=== PATIENT | male | born 1945 | race Caucasian/White ===

== ENCOUNTER 2016-09-04 17:20 | Emergency (ER) | payer MEDICARE ==
[2015-04-30 10:35] VITALS: BMI 15.7
[~2016-09-04 17:20] MED LIST: ACETAMINOPHEN325 MG PO; ALDACTONE25 MG PO; ARICEPT10 MG PO; BAYER CHEWABLE81 MG PO; COLACE100 MG PO; DEPAKOTE SPRIN125 MG PO; FLOMAX0.4 MG PO; GABAPENTIN100 MG PO; LEXAPRO5 MG PO; LIPITOR10 MG PO; LISINOPRIL10 MG PO; NIFEDIPINE ER60 MG; PEPCID20 MG PO; PERPHENAZINE2 MG PO; PROCARDIA XL PO; SEROQUEL25 MG PO; TRAZODONE HCL50 MG PO; VITAMIN B-121000 MCG PO; VITAMIN D5000 UNIT PO; ZANTAC150 MG PO; ZESTRIL40 MG PO
== END 2016-09-04 19:35 | disposition home or self-care (01) ==
LOC: D.ER 17:20
DX: S00.83XA Contusion of other part of head, initial encounter (principal); Y04.2XXA Assault by strike against or bumped into by another person, initial encounter; Y93.89 Activity, other specified; Y92.89 Other specified places as the place of occurrence of the external cause; M54.2 Cervicalgia; F03.91 Unspecified dementia, unspecified severity, with behavioral disturbance; F10.20 Alcohol dependence, uncomplicated; Z95.0 Presence of cardiac pacemaker; N40.0 Benign prostatic hyperplasia without lower urinary tract symptoms; I25.10 Atherosclerotic heart disease of native coronary artery without angina pectoris; E78.5 Hyperlipidemia, unspecified; I10 Essential (primary) hypertension

== ENCOUNTER 2016-10-13 10:08 | Inpatient (IN) | payer MEDICARE ==
[~2016-10-13] VITALS: Ht 185.4 cm; Wt 62.6 kg
[2016-10-13 11:25] LABS: BASOPHILS 0.1 % (0-2); EOSINOPHILS 0 % (0-7); HEMATOCRIT 42.4 % (42.0-54.0); HEMOGLOBIN 13.9 g/dL (13.5-17.5); IMMATURE GRANULOCYTES 0.4 % (0-5); LYMPHOCYTES 11.5 % (15-50); MCH 33.7 pg (26.0-34.0); MCHC 32.8 g/dL (31.0-37.0); MCV 102.7 fL (80.0-100.0); MEAN PLATELET VOLUME 10.2 fL (7.4-10.4); MONOCYTES 24.3 % (2-11); NEUTROPHILS 63.7 % (40-80); RBC 4.13 10x6/uL (4.20-6.10); RDW 13.5 % (11.5-14.5); WBC 7.1 10x3/uL (4.8-10.8)
[2016-10-13 11:28] LABS: PLATELET COUNT 148 10x3/uL (130-400)
[2016-10-13 11:47] LABS: ALBUMIN 2.7 g/dL (3.4-5.0); ANION GAP 17.1 mmol/L (8-16); BILIRUBIN - TOTAL 1.17 mg/dL (0.2-1.3); CALCIUM 9.4 mg/dL (8.5-10.1); CARBON DIOXIDE 26.1 mmol/L (21.0-32.0); CREATININE - SERUM 1.8 mg/dL (0.6-1.3); POTASSIUM - SERUM 4.2 mmol/L (3.5-5.1)
[2016-10-13 12:24] LABS: APPEARANCE HAZY (CLEAR); BILIRUBIN NEGATIVE (NEGATIVE); COLOR YELLOW (YELLOW); GLUCOSE NEGATIVE (NEGATIVE); KETONE MODERATE mg/dL (NEGATIVE); LEUKOCYTE ESTERASE NEGATIVE (NEGATIVE); NITRITE NEGATIVE (NEGATIVE); PROTEIN 1+ mg/dL (NEGATIVE); SPECIFIC GRAVITY 1.015 (1.005-1.020); UROBILINOGEN NORMAL (NORMAL)
[2016-10-13 12:25] LABS: AMORPHOUS SEDIMENT >1+ /lpf (NONE SEEN); BACTERIA FEW /hpf (NONE SEEN); EPITHELIAL CELLS 0-5 /hpf (0-5); GRANULAR CAST RARE /lpf (NONE SEEN); MUCUS <1+ /lpf (NONE SEEN); WHITE CELLS - URINE OCC /hpf (0-5)
[2016-10-13 15:53] VITALS: BP 125/79
[2016-10-13 19:00] VITALS: BP 134/97
[2016-10-13] MEDS ORDERED: LEXAPRO20 MG PO (22:25)
[2016-10-13] MEDS ORDERED: LIPITOR10 MG PO (22:26)
[2016-10-13] MEDS ORDERED: NORVASC5 MG PO (22:27)
[2016-10-13] MEDS ORDERED: MULTIPLE VITAMI1 TA1 PO (22:27)
[2016-10-13] MEDS ORDERED: NIZORAL 2 % CRE15 GM TOPICAL (22:35)
[2016-10-14] VITALS: BP 113/63
--- NOTE | 2016-10-14 01:19 | NUR ---
TELEMETRY REPORTED PT PULSE WENT UP TO 170'S. VITALS STABLE NOW, WITH PT SWEATING OFF A FEVER AT THIS TIME. VITALS STABLE AND PULSE 118 AT THIS ASSESSMENT. WILL CONTINUE TO MONITOR CLOSELY. SIDE RAILS UP X2 FOR SAFETY.
--- NOTE | 2016-10-14 02:11 | NUR ---
PULSE RATE CONTINUES TO FLUCTUATE FROM 80'S TO 170'S AT TIMES. APICAL HEART RATE [address] P[address] LUIS TO ADVISE.
--- NOTE | 2016-10-14 02:25 | NUR ---
RECEIVED ORDER FROM MD TO DO STAT EKG AND CK / TROP AND CALL IF RESULTS ARE ABNORMAL.
[2016-10-14 03:17] LABS: CKMB 4.8 U/L (0.0-3.6); CREATINE KINASE 557 UL (21-232)
[2016-10-14 03:25] LABS: TROPONIN-I 0.065 ng/mL (0.000-0.060)
--- NOTE | 2016-10-14 03:37 | NUR ---
CALLED ABNORMAL EKG RESULTS AND ELEVATED CK / TROP RESULTS CALLED TO MD. NEW ORDER RECEIVED FOR CARDIOLOGY CONSULT...ORDER PLACED FOR CONSULT WITH DR HARPER IN AM.
[2016-10-14 04:00] VITALS: BP 110/86
--- NOTE | 2016-10-14 04:00 | NUR ---
ORDERED CK / TROP AND EKG Q6 X3 TOTAL....TO BE REPEATED AT 0835 AND 1435.
[2016-10-14 05:09] LABS: BASOPHILS 0.1 % (0-2); EOSINOPHILS 0 % (0-7); HEMATOCRIT 39.1 % (42.0-54.0); HEMOGLOBIN 12.4 g/dL (13.5-17.5); IMMATURE GRANULOCYTES 0.5 % (0-5); LYMPHOCYTES 9.5 % (15-50); MCH 33.4 pg (26.0-34.0); MCHC 31.7 g/dL (31.0-37.0); MEAN PLATELET VOLUME 10.4 fL (7.4-10.4); MONOCYTES 11.5 % (2-11); NEUTROPHILS 78.4 % (40-80); PLATELET COUNT 157 10x3/uL (130-400); RBC 3.71 10x6/uL (4.20-6.10); RDW 13.6 % (11.5-14.5); WBC 7.4 10x3/uL (4.8-10.8)
[2016-10-14 05:16] LABS: MCV 105.4 fL (80.0-100.0)
[2016-10-14 05:39] LABS: ALBUMIN 2.1 g/dL (3.4-5.0); ALKALINE PHOSPHATASE 61 U/L (46-116); ALT (SGPT) 19 U/L (10-68); BILIRUBIN - TOTAL 1.06 mg/dL (0.2-1.3); CALC OSMOLALITY 322 mosm/kg (275-300); CALCIUM 8.4 mg/dL (8.5-10.1); CARBON DIOXIDE 28.6 mmol/L (21.0-32.0); CHLORIDE - SERUM 114 mmol/L (98-107); CREATININE - SERUM 1.7 mg/dL (0.6-1.3); GLUCOSE 169 mg/dL (74-106); MAGNESIUM - SERUM 2.4 mg/dL (1.8-2.4); PHOSPHOROUS 4.5 mg/dL (2.5-4.9); PROTEIN - SERUM 6.3 g/dL (6.4-8.2); SODIUM 151 mmol/L (136-145); UREA NITROGEN 67 mg/dL (7-18); eGFR NON AFRICAN AMERICAN 42 mL/min (90-120)
--- NOTE | 2016-10-14 06:00 | NUR ---
PAGED DR HARPER...RE: CONSULT AND PULSE RATE CONTINUING TO RUN HIGH.
[2016-10-14 07:54] VITALS: BP 124/83
[2016-10-14 11:04] VITALS: Ht 185.4 cm; Wt 62.6 kg
--- NOTE | 2016-10-14 11:26 | NUR ---
PT TURNED TO RIGHT SIDE. NO INCONT. NOTED AT THIS TIME. CONT. TUBE FEEDING STARTED ORDERED-PEG TUBE FLUSHES EASILY
[2016-10-14 12:19] VITALS: BP 116/70
--- NOTE | 2016-10-14 12:41 | NUR ---
Patient Name: JOSH VIDAL Admission Status: ER Accout number: [id number] Admission Date: 10-13-2016 : 1945 Admission Diagnosis:CHRONIC OBSTRUCTIVE PULMON DISEASE W ACUTE LOWER RESP I Attending: CINDY Current LOS: 1 Anticipated DC Date: 10-18-2016 Planned Disposition: Nursing Facility JANET Cert Primary Insurance: MEDICARE A & B Discharge Planning Comments: CM CALLED [facility] REGARDING PATIENT. [facility] STATED PATIENT HAS LIVED THERE SINCE 2014 IN A DEPARTMENT SALES MANAGER BED AND WILL RETURN THERE ON DISCHARGE. PATIENT IS TOTALLY DEPENDENT FOR HIS CARE. PATIENT IS USUALLY IN A WHEELCHAIR AT FACILITY. PATIENT HAS NO FAMILY CONTACTS PER FACILITY. CM WILL CONTINUE TO FOLLOW PATIENT WITH D/C NEEDS AND PLANS. PCP DR. FARLEY IN HOUSE PHARMACY NO CONTACTS Field Attendant: Jennifer Chance Is the patient Alert and Oriented? No 0 * How many steps to enter\exit or inside your home? 0 0 * Pharmacy IN HOUSE 0 * Preadmission Environment Braid Pattern Setter Detention 0 * Facility Name [facility] 0 * ADLs Total Dependent 0 * Equipment Hospital Bed Wheelchair 0 * Other Equipment [facility] HAS ALL NEEDED EQUIP 0 * List name and contact numbers for known caregivers / representatives who currently or will assist patient after discharge: NO CONTACTS 0 * Community resources currently utilized None 0 * Additional services required to return to the preadmission environment? Yes 0 * Can the patient safely return to the preadmission environment? Yes 0 * Has this patient been hospitalized within the prior 30 days at any hospital? No 0 Grand Total: 0
--- NOTE | 2016-10-14 14:00 | NUR ---
HELD URINAL FOR PATIENT, HE DID NOT URINATE. PATIENT IS NOT WET AT THIS TIME. TURNED PATIENT FROM HIS BACK TO HIS LEFT SIDE. POSITIONED WITH A PILLOW BEHIND HIS BACK AND BETWEEN HIS LEGS. HOB 30 DEGREES. TUBE FEEDINGS ARE INFUSING. SCDS TO BILATERAL LEGS. PATIENT DENIES PAIN. BED ALARM ON. SO SIGNS OF DISTRESS NOTED.
--- NOTE | 2016-10-14 15:26 | NUR ---
INCREASED FEEDING TUBE RATE TO 40ML/HR
[2016-10-14 15:37] VITALS: BP 144/72
[2016-10-14 17:54] LABS: CKMB 5.6 U/L (0.0-3.6); CREATINE KINASE 591 UL (21-232); TROPONIN-I 0.048 ng/mL (0.000-0.060)
--- NOTE | 2016-10-14 18:00 | NUR ---
CHECKED RESIDUAL BEFORE GIVING ROBITUSSIN THROUGH PEG TUBE. RESIDUAL 20ML.
[2016-10-14 18:35] LABS: CREATINE KINASE 484 UL (21-232); TROPONIN-I 0.056 ng/mL (0.000-0.060)
[2016-10-14 18:42] LABS: CKMB 3.9 U/L (0.0-3.6)
--- NOTE | 2016-10-14 19:00 | NUR ---
BEDSIDE REPORT RECEIVED AND CARE OF PT ASSUMED. PT LYING IN SEMI PEÑA'S POSITION WITH HOB AT 30 DEGREES. IV IN LEFT WRIST PATENT WITH D1/2 D5 INFUSING AT 75 ML / HR. PEG TUBE PATENT WITH TWO STEPHANIE INFUSING VIA FEEDING PUMP AT 40 ML / HR. SIDE RAILS UP X2 FOR SAFETY. BED ALARM IN USE. WILL MONITOR CLOSEY FOR NEEDS.
--- NOTE | 2016-10-14 19:08 | NUR ---
CHANGED FEEDING PUMP FLUSH TO 150ML Q4H
--- NOTE | 2016-10-14 19:09 | NUR ---
SPUTUM NOT COLLECTED THIS SHIFT DUE TO PATIENT NOT COUGHING UP SPUTUM. ENCOURAGED PATIENT TO COUGH. STILL DID NOT COUGH OUT ANY SPUTUM.
[2016-10-14 20:00] VITALS: BP 112/79
--- NOTE | 2016-10-14 20:21 | NUR ---
HS MEDICATIONS GIVEN VIA PEG TUBE. FLUSHED WITH 30 ML WATER BEFORE AND AFTER MEDICATIONS.
--- NOTE | 2016-10-14 21:45 | NUR ---
PT BATHED AND BEDDING CHANGED. RE-POSITIONED PER TURN SCHEDULE AND PROPPED WITH PILLOWS. BED ALARM IN USE.
[2016-10-15 00:05] VITALS: BP 106/79
--- NOTE | 2016-10-15 01:37 | NUR ---
CHANGED PT DUE TO INCONTINENT URINE AND BM EPISODE. POSITIONED FOR COMFORT.
--- NOTE | 2016-10-15 01:37 | NUR ---
PT PULLED OUT IV, WITH CATHETER TIP INTACT. RE-SITED TO LEFT UPPER ARM USING 20 GUAGE CATHETER IN ONE STICK. RE-STARTED IV FLUIDS.
[2016-10-15 04:00] VITALS: BP 127/85
[2016-10-15 05:20] LABS: ANION GAP 11.6 mmol/L (8-16); CALCIUM 8.7 mg/dL (8.5-10.1); CREATININE - SERUM 1.4 mg/dL (0.6-1.3); POTASSIUM - SERUM 3.6 mmol/L (3.5-5.1)
--- NOTE | 2016-10-15 05:31 | NUR ---
PT BATHED AND ALL LINENS CHANGED. AM MEDICATIONS GIVEN.
[2016-10-15 08:11] VITALS: BP 105/73
--- NOTE | 2016-10-15 09:41 | NUR ---
SPOKE WITH 'S NURSE, SHE STATED SHE WILL GIVE THE MESSAGE TO . NOTIFIED HER THAT I GAVE THE PATIENT 40MG OF BETAPACE AT 0809 AND THE PATIENT'S HEART RATE IS STILL IN THE 140'S UNCONTROLLED AFIB.
[2016-10-15 09:50] VITALS: BP 111/87
--- NOTE | 2016-10-15 09:50 | NUR ---
SPOKE WITH JASWINDER WINTERS FOR CARDIOLOGY, SEE ORDERS.
--- NOTE | 2016-10-15 10:00 | NUR ---
MARILIA SMITH RN IN ROOM GIVING DIGOXIN.
[2016-10-15 12:27] VITALS: BP 148/89
--- NOTE | 2016-10-15 14:07 | NUR ---
PAGED , REAL ESTATE AGENCY PRINCIPAL TO NOTIFY HIM THAT PATIENT'S HEART RATE IS IN THE 60'S AND HE IS SINUS RYTHYM.
--- NOTE | 2016-10-15 14:12 | NUR ---
SPOKE WITH DR.ST ALEJANDRO. HE STATED "DO NOT GIVE THE IV LANOXIN, DISCONTINUE BOTH DOSES. GIVE 0.125MG LANOXIN PO NOW AND START HIM ON IT DAILY."
[2016-10-15 15:03] LABS: ANION GAP 10.8 mmol/L (8-16); CALCIUM 8.4 mg/dL (8.5-10.1); CARBON DIOXIDE 26.8 mmol/L (21.0-32.0); CREATININE - SERUM 1.4 mg/dL (0.6-1.3); POTASSIUM - SERUM 3.6 mmol/L (3.5-5.1)
[2016-10-15 15:57] VITALS: BP 130/89
--- NOTE | 2016-10-15 21:05 | NUR ---
PATIENT RESTING IN BED. NO SIGNS OF DISTRESS NOTED. SCHEDULED MEDS GIVEN PER TUBE. NO NEEDS VOICED AT THIS TIME. BED LOW. CALL LIGHT IN REACH. BED ALARM ON.
[2016-10-16 04:00] VITALS: BP 134/87
[2016-10-16 06:14] LABS: ANION GAP 13.5 mmol/L (8-16); CALCIUM 8.3 mg/dL (8.5-10.1); CARBON DIOXIDE 25.1 mmol/L (21.0-32.0); CREATININE - SERUM 1.1 mg/dL (0.6-1.3); POTASSIUM - SERUM 3.6 mmol/L (3.5-5.1)
--- NOTE | 2016-10-16 07:35 | NUR ---
AWAKE AND CONFUSED AT THIS TIME. CONFUSED TO PLACE, TIME AND SITUATION. PT WET AT THIS TIME. BED ALARM TURNED ON AND SCD'S REMOVED PER PT THEY APPEAR TO BE AGGITATING HIM. INCONTINENCE CARE PROVIDED AND PT POSITIONED TO BACK PER HIMSELF HE FIGHTS US UPON ATTEMPTING TO TURN. DOOR OPEN. WILL CONTINUE WITH PLAN OF CARE.
[2016-10-16 08:49] VITALS: BP 131/93
--- NOTE | 2016-10-16 09:29 | NUR ---
SCHEDULED MEDICATIONS GIVEN CRUSHED THROUGH PEG TUBE AT THIS TIME. ASSESSMENT PERFORMED PER FLOWSHEET. SCD'S OFF PER PT. BED ALARM ON AND DOOR REMINS OPEN. WILL CONTINUE WITH PLAN OF CARE.
--- NOTE | 2016-10-16 10:45 | NUR ---
PT HAD INCONTINENT EPISODE OF STOOL AND URINE. COMPLETE LINEN CHANGE PROVIDED AT THIS TIME. CALL LIGHT IN REACH AND BED ALARM ON. WILL CONTINUE WITH PLAN OF CARE.
[2016-10-16 12:19] VITALS: BP 151/98
[2016-10-16 16:37] VITALS: BP 154/96
[2016-10-16 20:00] VITALS: BP 149/98
--- NOTE | 2016-10-16 21:56 | NUR ---
REC'D PATIENT LYING IN BED. ALERT AND ORIENTED X1. DENIED PAIN AT THIS TIME. NO DISTRESS NOTED. FEEDING PUMP WAS GOING OFF SAYING IT WAS CLOGGED. WHEN ADMINISTERING PM MEDS I FLUSHED IT REAL GOOD AND IT SEEMS TO BE RUNNING OK NOW. DENIED FURTHER NEEDS AT THIS TIME. WILL CONT TO MONITOR THROUGHOUT THE NIGHT. BED LOW, LOCKED, CALL LIGHT IN REACH, ALARM ON.
[2016-10-17] VITALS: BP 154/76
--- NOTE | 2016-10-17 02:10 | NUR ---
RESTING WITH EYES CLOSED, NO DISTRESS NOTED, FALL PRECAUTIONS IN PLACE, CL IN REACH
--- NOTE | 2016-10-17 03:24 | NUR ---
PATIENT IS RESTING IN BED. NO DISTRESS NOTED. DENIES PAIN AT THIS TIME. DENIES FURTHER NEEDS AT THIS TIME. INSTRUCTED TO CALL IF NEEDED ANYTHING. BED LOW, LOCKED CALL LIGHT IN REACH, ALARM ON.
[2016-10-17 04:00] VITALS: BP 110/64
[2016-10-17 06:15] LABS: BASOPHILS 0.3 % (0-2); EOSINOPHILS 0.1 % (0-7); HEMATOCRIT 36.7 % (42.0-54.0); HEMOGLOBIN 12.1 g/dL (13.5-17.5); IMMATURE GRANULOCYTES 7.7 % (0-5); LYMPHOCYTES 21.2 % (15-50); MCH 33.2 pg (26.0-34.0); MCV 100.8 fL (80.0-100.0); MEAN PLATELET VOLUME 10.1 fL (7.4-10.4); MONOCYTES 9.7 % (2-11); PLATELET COUNT 173 10x3/uL (130-400); RBC 3.64 10x6/uL (4.20-6.10); RDW 12.8 % (11.5-14.5); WBC 7.8 10x3/uL (4.8-10.8)
[2016-10-17 06:26] LABS: CALCIUM 7.8 mg/dL (8.5-10.1); CARBON DIOXIDE 28.7 mmol/L (21.0-32.0); CHLORIDE - SERUM 106 mmol/L (98-107); SODIUM 139 mmol/L (136-145); eGFR NON AFRICAN AMERICAN 78 mL/min (90-120)
[2016-10-17 06:30] LABS: CALC OSMOLALITY 285 mosm/kg (275-300); GLUCOSE 108 mg/dL (74-106); UREA NITROGEN 31 mg/dL (7-18)
--- NOTE | 2016-10-17 07:25 | NUR ---
PATIENT RECEIVED ALERT IN MID PEÑA POSITION. RESPIRATIONS EVEN AND UNLABORED. SIDE RAILS UP X3. BED IN LOW POSITION. CALL LIGHT IN REACH.
[2016-10-17 08:23] VITALS: BP 112/79
--- NOTE | 2016-10-17 08:48 | NUR ---
PATIENT ALERT IN BED. INCONTINENT OF BOWEL AND BLADDER. LINEN CHANGE COMPLETE. SCHEDULED MEDICATION ADMINISTERED. WELL TOLERATED. SIDE RAILS UP X3. BED IN LOW POSITION. CALL LIGHT IN REACH. BED ALARM ON.
--- NOTE | 2016-10-17 12:08 | NUR ---
ALERT IN BED. SCHEDULED MEDICATION ADMINISTERED VIA PEG. SIDE RAILS UP X3. BED IN LOW POSITION. CALL LIGHT IN REACH. BED ALARM ON.
[2016-10-17 12:42] VITALS: BP 105/81
--- NOTE | 2016-10-17 13:45 | NUR ---
PATIENT INCONTINENT OF URINE. LINEN CHANGE COMPLETE. REPOSITIONED IN BED. WELL TOLERATED. SIDE RAILS UP X2. BED IN LOW POSITION. CALL LIGHT IN REACH. BED ALARM ON.
--- NOTE | 2016-10-17 17:00 | NUR ---
ALERT IN HIGH PEÑA POSITION. NO SIGNS OF DISTRESS NOTED. SIDE RAILS UP X3. BED IN LOW POSITION. CALL LIGHT IN REACH.
[2016-10-17 17:04] VITALS: BP 127/91
[2016-10-17 19:00] VITALS: BP 143/83
--- NOTE | 2016-10-17 21:54 | NUR ---
REC'D PATIENT LYING CROOKED IN BED. STRAIGHTEN UP. ALERT AND ORIENTED X1. DENIED PAIN AT THIS TIME. DENIED FURTHER NEEDS AT THIS TIME. WILL ADMINISTER PM MEDS PRESCRIBED. WILL CONT TO MONITOR. NO DISTRESS NOTED. BED LOW, LOCKED, CALL LIGHT IN REACH, ALARM ON.
[2016-10-18 02:49] VITALS: BP 138/97
[2016-10-18 04:00] VITALS: BP 135/96
--- NOTE | 2016-10-18 04:51 | NUR ---
PATIENT RESTING IN BED AND DENIES NEEDS AT THIS TIME. BED IN LOWEST POSITION AND CALL LIGHT WITHIN REACH. ENCOURAGED THE PATIENT TO CALL IF HE HAS NEEDS.
--- NOTE | 2016-10-18 06:31 | NUR ---
PATIENT IS RESTING IN BED. HAS NOT BEEN TO SLEEP AT ALL TONIGHT. NO DISTRESS NOTED. DENIED PAIN AT THIS TIME. DENIED FURTHER NEEDS AT THIS TIME. INSTRUCTED TO CALL IF NEEDED ANYTHING. BED LOW, LOCKED, CALL LIGHT IN REACH. ALARM ON.
--- NOTE | 2016-10-18 07:15 | NUR ---
PATIENT IS RESTING IN THE BED. PATIENT IS AWAKE, ALERT, AND CONFUSED TO PERSON, PLACE, TIME, AND SITUATION. NO S/S OF DISTRESS NOTED. BED ALARM IN PLACE FOR PATIENT'S SAFETY. CALL LIGHT IN PATIENT'S REACH. WILL MONITOR PATIENT.
[2016-10-18 07:17] LABS: BASOPHILS 0.4 % (0-2); EOSINOPHILS 0.1 % (0-7); HEMOGLOBIN 12.7 g/dL (13.5-17.5); IMMATURE GRANULOCYTES 8.1 % (0-5); MCH 33.2 pg (26.0-34.0); MCHC 33.4 g/dL (31.0-37.0); MCV 99.5 fL (80.0-100.0); MEAN PLATELET VOLUME 10.4 fL (7.4-10.4); MONOCYTES 6.4 % (2-11); RBC 3.82 10x6/uL (4.20-6.10); RDW 12.8 % (11.5-14.5)
[2016-10-18 07:24] LABS: PLATELET COUNT 223 10x3/uL (130-400); WBC 10.6 10x3/uL (4.8-10.8)
[2016-10-18 07:36] LABS: ANION GAP 9.7 mmol/L (8-16); CALCIUM 8.3 mg/dL (8.5-10.1); CARBON DIOXIDE 28.1 mmol/L (21.0-32.0); CREATININE - SERUM 1.1 mg/dL (0.6-1.3)
[2016-10-18 07:43] LABS: POTASSIUM - SERUM 3.8 mmol/L (3.5-5.1)
--- NOTE | 2016-10-18 08:02 | NUR ---
PATIENT RESTING IN THE BED. PATIENT IS AWAKE, ALERT, AND ORIENTED X4. NO COMPLAINTS OF PAIN AT PRESENT TIME. FAMILY AT HER BEDSIDE. ASSESSMENT COMPLETED. SEE FLOWSHEET FOR ANY DETAILS. DRESSING IS C/D/I TO PATIENT'S RIGHT BREAST AREA. PATEL CATHETER PATENT AND DRAINING CLEAR YELLOW URINE. TELEMETRY IN PLACE AND SHOWING NORMAL SINUS RHYTHM WITH A RATE OF 74. SCD'S IN PLACE TO BILATERAL LOWER EXTREMITIES. PATIENT DENIES ANY NEEDS AT PRESENT TIME. SCHEDULED MORNING MEDICATIONS GIVEN TO PATIENT. PATIENT TOLERATED WELL WITH SPRITE. CALL LIGHT IN PATIENT'S REACH. WILL MONITOR PATIENT.
[2016-10-18 08:40] VITALS: BP 147/115
--- NOTE | 2016-10-18 09:34 | NUR ---
PATIENT RESTING IN THE BED. SCHEDULED MEDICATIONS CRUSHED AND GIVEN TO PATIENT VIA GRAVITY THRU HIS J-TUBE. PATIENT TOLERATED WELL. HOB IS UP 30 DEGREES. PATIENT IS AWAKE, ALERT, AND STILL CONFUSED. BED ALARM IS IN PLACE FOR PATIENT'S SAFETY. ASSESSMENT COMPLETED. SEE FLOWSHEET FOR ANY DETAILS. TELEMETRY IN PLACE AND SHOWING ATRIAL FLUTTER WITH A RATE OF 89. SCD'S IN PLACE TO PATIENT'S BILATERAL LOWER EXTREMITIES. TWO STEPHANIE-HN FEEDING GOING AT 40 ML/HR THRU PATIENT'S J-TUBE. CALL LIGHT IN PATIENT'S REACH. WILL MONITOR PATIENT.
[2016-10-18 12:44] VITALS: BP 133/79
--- NOTE | 2016-10-18 12:54 | NUR ---
Nutrition Follow Up: Pt is tolerating current TF regimen of 2Cal HN @ 40 ml/hr. Water flushes 25 ml/hr. +BM 10/18/16. No new wt to assess. Meds and labs reviewed. Rec continue current TF, water flush regimen which is providing 1920 kcal, 80 g protein and 932 ml free water. May need to increase water flushes if IV fluids decrease. RD will continue to monitor pt progress.
[2016-10-18 16:53] VITALS: BP 131/68
--- NOTE | 2016-10-18 18:18 | NUR ---
PATIENT SITTING UP IN BED AWAKE, ALERT, AND CONFUSED. NO S/S OF DISTRESS NOTED. SCHEDULED MEDICATIONS GIVEN PER J-TUBE WITHOUT ANY PROBLEMS NOTED. CALL LIGHT IN PATIENT'S REACH. BED ALARM IN PLACE FOR SAFETY. WILL CONTINUE TO MONITOR PATIENT.
[2016-10-18 19:00] VITALS: BP 147/104
--- NOTE | 2016-10-18 20:51 | NUR ---
REC'D PATIENT LYING IN BED. ALERT AND ORIENTED X1. DENIED PAIN AT THIS TIME. NO DISTRESS NOTED. WILL CONT TO MONITOR THROUGHTOUT THE NIGHT. WILL ADMINISTER PM MEDS PRESCRIBED. DENIED FURTHER NEEDS AT THIS TIME. INSTRUCTED TO CALL IF NEEDED ANYTHING. BED LOW, LOCKED, CALL LIGHT IN REACH, ALARM ON.
[2016-10-19] VITALS: BP 131/91
[2016-10-19 04:00] VITALS: BP 139/88
--- NOTE | 2016-10-19 04:59 | NUR ---
AWAKE CONFUSED MOVES AROUND IN BED SR UP X2 CALL LIGHT WITHIN REACH. DOOR OPENED.
--- NOTE | 2016-10-19 07:30 | NUR ---
PATIENT RECEIVED IN LEFT LATERAL POSITION RESTING WITH EYES CLOSED. RESPIRATIONS EVEN AND UNLABORED. SIDE RAILS UP X2. BED IN LOW POSITION. CALL LIGHT IN REACH. BED ALARM ON.
[2016-10-19 08:32] VITALS: BP 144/72
--- NOTE | 2016-10-19 08:34 | NUR ---
PATIENT IN LEFT LATERAL POSITION. NO SIGNS OF DISTRESS NOTED. INCONTINENT OF BOWEL. SAMPLE OBTAINED. LINEN CHANGE COMPLETE. SCHEDULED MEDICATION ADMINISTERED. SIDE RAILS UP X2. BED IN LOW POSITION. CALL LIGHT IN REACH.
--- NOTE | 2016-10-19 12:04 | NUR ---
ALERT IN BED. NO SIGNS OF DISTRESS NOTED. SCHEDULED MEDICATION ADMINISTERED VIA PEG. SIDE RAILS UP X2. BED IN LOW POSITION. CALL LIGHT IN REACH. BED ALARM ON.
[2016-10-19 12:51] VITALS: BP 144/90
--- NOTE | 2016-10-19 14:00 | NUR ---
NUTRITION MONITORING & EVAL CHART REVIEWED, TOLERATING TWO STEPHANIE HN AT GOAL RATE 40 CC/HR. 25 CC H2O FLUSH Q HR. IV FLUIDS AT 50 CC/HR. TUBE FEEDS, FLUSH, IV FLUID PROVIDING TOTAL 2472 CC FLUID PER DAY. RD FOLLOWING
--- NOTE | 2016-10-19 15:30 | NUR ---
CM REASSESSMENT NOTE: PATIENT IS DISCHARGING BACK TO [facility] BY AMBULANCE TO A SKILLED NURSING BED. RAKESH AT [facility] NOTIFIED.
[2016-10-19] MEDS ORDERED: ATROVENT 0.02%2.5 ML UPD (15:48)
[2016-10-19] MEDS ORDERED: BROVANA15 MCG/2 M INH (15:48)
[2016-10-19] MEDS ORDERED: XOPENEX 0.0.63 MG/3 UPD (15:49)
[2016-10-19] MEDS ORDERED: BETAPACE 80 MG80 MG PO (15:50)
[2016-10-19] MEDS ORDERED: LANOXIN125 MCG PO (15:50)
[2016-10-19] MEDS ORDERED: FLORAJEN3 CAPS460 MG PO (15:52)
--- NOTE | 2016-10-19 16:15 | NUR ---
IV TO LEFT UPPER ARM D/C WITH CATH TIP INTACT. SITE COVERED WITH GAUZE AND BANDAID. PEG TUBE FLUSHED AND CLAMPED FOR TRANSPORTATION BACK TO FACILITY
--- NOTE | 2016-10-19 16:28 | NUR ---
REPORT CALLED TO [facility]
--- NOTE | 2016-10-19 16:44 | NUR ---
PATIENT D/C TO [facility] VIA [facility]
--- NOTE | 2016-10-21 08:04 | EC ---
PATIENT:JOSH VIDAL DATE OF SERVICE: 10/13/16 SEX: M MEDICAL RECORD: [id number] DATE OF : [birth year] LOCATION:D.[facility] AGE OF PATIENT: 71 ADMISSION DATE: 10/13/16 REFERRING PHYSICIAN: INTERPRETING PHYSICIAN: ADELE HUA M.D. ECHOCARDIOGRAM REPORT ECHO CHARGES 4 ECHO COMPLETE CLINICAL DIAGNOSIS: AFIB ECHOCARDIOGRAPHIC MEASUREMENTS (adult normal given) AC root (d.<3.7cm) 3.5 LV Septum d (<1.2 cm> 1.2 Valve Excursion 1.4 LV Septum (systole) 1.5 Left Atria (s.<4.0cm> 3.9 LVPW d(<1.2cm) 1.3 RV (d.<2.3cm) LVPW (sytole) 1.5 LV diastole(<5.6CM) 3.4 MV E-F(>70mm/sec) LV systole 1.6 LVOT Diameter 1.3 MV exc.(>10mm) 1.8 Est.ejection fraction (50-75%) Pericardial Effusion N DOPPLER: LVIT A 61.0 E 31.0 LA RVSP LVOT 170 AOP1/2T 833 Asc. Ao 387 RVOT RA PA AV Gradient Peak 11.55 AV Mean 5.53 AV Area 1.6 MV Gradient Peak 4.16 MV Mean 1.77 MV Area COMMENTS: Ride Operator: Last WEBER Mechanical Research Engineer:2 Dr. Hua TAPE# PACS DATE OF SERVICE: 10/14/2016 INDICATION: Atrial fibrillation. DESCRIPTION: Left ventricle is normal size and function. No wall motion abnormalities are seen. Estimated ejection fraction is 55%. Mitral valve is structurally normal. There is no regurgitation or prolapse seen. Left atrium is normal in size. The aortic valve leaflets are thickened. There is oiph-iy-gqxknrvm insufficiency noted, but no evidence of stenosis. Right ventricle is mildly dilated. Tricuspid valve is structurally normal. There is ECHOCARDIOGRAM REPORT [id number] JOSH VIDAL mild regurgitation seen. Right atrium is normal size. There is no pericardial effusion noted. IMPRESSION: 1. Normal left ventricular size and function, ejection fraction 55%. 2. Aortic valve sclerosis without stenosis. 3. Dixf-dv-meforxgl aortic insufficiency. 4. Mild tricuspid regurgitation. TRANSINT:[id number] Voice Confirmation ID: [id number] DOCUMENT ID: [id number] ADELE HAU M.D. at 0804 CC: [id number] DICTATION DATE: 10/15/16 1238 CLINICAL TRAINING SPECIALIST: 10/16/16 0013 DIS IN 10/19/16 [place] [id number] [place] [id number]
== END 2016-10-19 16:44 | DRG 190 ==
LOC: D.ER 10:08 → D.MS 12:55
PROVIDERS: Internal Medicine Pulmonary Disease; Physician Assistant; ADMIT Family Medicine
DX: J44.0 Chronic obstructive pulmonary disease with (acute) lower respiratory infection (principal); J18.9 Pneumonia, unspecified organism; N17.9 Acute kidney failure, unspecified; E87.2 Acidosis; E87.0 Hyperosmolality and hypernatremia; I13.0 Hypertensive heart and chronic kidney disease with heart failure and stage 1 through stage 4 chronic kidney disease, or unspecified chronic kidney disease; I50.30 Unspecified diastolic (congestive) heart failure; J44.1 Chronic obstructive pulmonary disease with (acute) exacerbation; N18.9 Chronic kidney disease, unspecified; I69.391 Dysphagia following cerebral infarction; R13.10 Dysphagia, unspecified; G30.9 Alzheimer's disease, unspecified; F02.80 Dementia in other diseases classified elsewhere, unspecified severity, without behavioral disturbance, psychotic disturbance, mood disturbance, and anxiety; E55.9 Vitamin D deficiency, unspecified; E78.5 Hyperlipidemia, unspecified; N40.0 Benign prostatic hyperplasia without lower urinary tract symptoms; I48.91 Unspecified atrial fibrillation; Z95.0 Presence of cardiac pacemaker; R19.7 Diarrhea, unspecified

== ENCOUNTER 2017-10-01 00:46 | Inpatient (IN) | payer MEDICARE ==
[~2017-10-01] VITALS: Ht 185.4 cm; Wt 59.0 kg
[~2017-10-01 00:46] MED LIST changes: -ACETAMINOPHEN325 MG PO; +ACETAMINOPHEN325 MG RC; +ATROVENT 0.02%2.5 ML UPD; +BETAPACE 80 MG80 MG PO; +BROVANA15 MCG/2 M INH; +FLORAJEN3 CAPS460 MG PO; +LANOXIN125 MCG PO; +LEXAPRO20 MG PO; +MULTIPLE VITAMI1 TA1 PO; +NIZORAL 2 % CRE15 GM TOPICAL; +NORVASC5 MG PO; +XOPENEX 0.0.63 MG/3 UPD
[2017-10-01 01:30] LABS: BASOPHILS 0.2 % (0-2); HEMATOCRIT 47.7 % (42.0-54.0); HEMOGLOBIN 15.1 g/dL (13.5-17.5); IMMATURE GRANULOCYTES 0.4 % (0-5); LYMPHOCYTES 25.6 % (15-50); MCH 33.6 pg (26.0-34.0); MCHC 31.7 g/dL (31.0-37.0); MEAN PLATELET VOLUME 11.8 fL (7.4-10.4); MONOCYTES 9.8 % (2-11); PLATELET COUNT 112 10x3/uL (130-400); RDW 15.4 % (11.5-14.5); WBC 9.9 10x3/uL (4.8-10.8)
[2017-10-01 01:38] LABS: APPEARANCE CLEAR (CLEAR); BILIRUBIN NEGATIVE (NEGATIVE); COLOR YELLOW (YELLOW); GLUCOSE NEGATIVE (NEGATIVE); KETONE SMALL mg/dL (NEGATIVE); NITRITE NEGATIVE (NEGATIVE); PROTEIN NEGATIVE (NEGATIVE); SPECIFIC GRAVITY 1.015 (1.005-1.020); UROBILINOGEN NORMAL (NORMAL)
[2017-10-01 01:56] LABS: ALBUMIN 2.3 g/dL (3.4-5.0); ALKALINE PHOSPHATASE 88 U/L (46-116); ALT (SGPT) 22 U/L (10-68); CALCIUM 8.7 mg/dL (8.5-10.1); CARBON DIOXIDE 33.6 mmol/L (21.0-32.0); CKMB 1.1 U/L (0.0-3.6); CREATINE KINASE 360 UL (21-232); CREATININE - SERUM 2.5 mg/dL (0.6-1.3); PROTEIN - SERUM 7.2 g/dL (6.4-8.2); TROPONIN-I 0.034 ng/mL (0.000-0.060); UREA NITROGEN 127 mg/dL (7-18); eGFR NON AFRICAN AMERICAN 27 mL/min (90-120)
[2017-10-01 02:02] LABS: CALC OSMOLALITY 374 mosm/kg (275-300); CHLORIDE - SERUM 128 mmol/L (98-107); GLUCOSE 145 mg/dL (74-106); MAGNESIUM - SERUM 3.5 mg/dL (1.8-2.4); SODIUM 168 mmol/L (136-145)
[2017-10-01] MEDS ORDERED: TRAZODONE HCL50 MG PO (04:10)
[2017-10-01] MEDS ORDERED: PROMOD LIQUID P30 M1 PEG (04:12)
[2017-10-01 06:38] VITALS: BP 135/70; BMI 17.1
[2017-10-01 08:31] VITALS: BP 157/61
[2017-10-01 08:33] LABS: BASOPHILS 0.1 % (0-2); EOSINOPHILS 1.5 % (0-7); HEMATOCRIT 46.8 % (42.0-54.0); HEMOGLOBIN 14.5 g/dL (13.5-17.5); IMMATURE GRANULOCYTES 0.6 % (0-5); LYMPHOCYTES 23.1 % (15-50); MCV 106.6 fL (80.0-100.0); MEAN PLATELET VOLUME 11.8 fL (7.4-10.4); MONOCYTES 13.1 % (2-11); NEUTROPHILS 61.6 % (40-80); PLATELET COUNT 99 10x3/uL (130-400); RBC 4.39 10x6/uL (4.20-6.10); RDW 15.4 % (11.5-14.5); WBC 10.2 10x3/uL (4.8-10.8)
[2017-10-01 08:39] LABS: CALCIUM 8.6 mg/dL (8.5-10.1); CARBON DIOXIDE 31.1 mmol/L (21.0-32.0); MAGNESIUM - SERUM 3.4 mg/dL (1.8-2.4); POTASSIUM - SERUM 3.7 mmol/L (3.5-5.1)
[2017-10-01 08:41] LABS: ANION GAP 9.6 mmol/L (8-16)
[2017-10-01 10:06] VITALS: Ht 185.4 cm; Wt 59.0 kg
[2017-10-01 12:32] VITALS: BP 130/74
[2017-10-01 16:13] VITALS: BP 145/79
[2017-10-01 22:35] VITALS: BP 154/69
[2017-10-02 07:10] VITALS: BP 114/77
[2017-10-02 08:02] VITALS: BP 115/73
[2017-10-02 12:14] VITALS: BP 152/81
[2017-10-02 15:42] VITALS: BP 154/81
[2017-10-02 20:43] VITALS: BP 146/80
[2017-10-03 00:10] VITALS: BP 124/76
[2017-10-03 05:12] VITALS: BP 149/93
[2017-10-03 09:49] VITALS: BP 140/85
[2017-10-03 11:43] LABS: BASOPHILS 0.3 % (0-2); EOSINOPHILS 0 % (0-7); HEMATOCRIT 46.4 % (42.0-54.0); HEMOGLOBIN 15.1 g/dL (13.5-17.5); IMMATURE GRANULOCYTES 0.3 % (0-5); LYMPHOCYTES 21.1 % (15-50); MCH 33.4 pg (26.0-34.0); MCHC 32.5 g/dL (31.0-37.0); MCV 102.7 fL (80.0-100.0); MEAN PLATELET VOLUME 11.8 fL (7.4-10.4); MONOCYTES 15.2 % (2-11); NEUTROPHILS 63.1 % (40-80); PLATELET COUNT 84 10x3/uL (130-400); RBC 4.52 10x6/uL (4.20-6.10); RDW 14.8 % (11.5-14.5)
[2017-10-03 12:08] LABS: CALC OSMOLALITY 327 mosm/kg (275-300); CARBON DIOXIDE 27.8 mmol/L (21.0-32.0); CREATININE - SERUM 1.8 mg/dL (0.6-1.3); GLUCOSE 149 mg/dL (74-106); PLATELET ESTIMATE DECREASED; POTASSIUM - SERUM 3.8 mmol/L (3.5-5.1); SODIUM 155 mmol/L (136-145); UREA NITROGEN 62 mg/dL (7-18); eGFR NON AFRICAN AMERICAN 39 mL/min (90-120)
[2017-10-03 12:12] LABS: PHENYTOIN (DILANTIN) < 0.5 ug/mL (10.0-20.0)
[2017-10-03 12:13] LABS: CHLORIDE - SERUM 119 mmol/L (98-107)
[2017-10-03 14:42] LABS: DIGOXIN 0.33 ng/mL (0.90-2.00); VALPROIC ACID (DEPAKOTE) 2.6 ug/mL (50.0-100.0)
[2017-10-03 14:56] VITALS: BP 106/61
[2017-10-03 17:32] VITALS: BP 114/77
[2017-10-03 20:38] VITALS: BP 105/70
[2017-10-04 04:06] VITALS: BP 131/80
[2017-10-04 06:07] LABS: BASOPHILS 0.1 % (0-2); EOSINOPHILS 0 % (0-7); HEMATOCRIT 40.2 % (42.0-54.0); IMMATURE GRANULOCYTES 0.5 % (0-5); LYMPHOCYTES 14.2 % (15-50); MCH 32.7 pg (26.0-34.0); MCHC 32.3 g/dL (31.0-37.0); MCV 101.3 fL (80.0-100.0); MEAN PLATELET VOLUME 12.6 fL (7.4-10.4); MONOCYTES 7.8 % (2-11); NEUTROPHILS 77.4 % (40-80); PLATELET COUNT 73 10x3/uL (130-400); RBC 3.97 10x6/uL (4.20-6.10); RDW 14.5 % (11.5-14.5); WBC 8.7 10x3/uL (4.8-10.8)
[2017-10-04 06:35] LABS: ANION GAP 13.9 mmol/L (8-16); CALCIUM 7.8 mg/dL (8.5-10.1); CARBON DIOXIDE 22.5 mmol/L (21.0-32.0); POTASSIUM - SERUM 3.4 mmol/L (3.5-5.1)
[2017-10-04 09:02] VITALS: BP 142/87
[2017-10-04 13:15] VITALS: BP 132/88
[2017-10-04 17:08] VITALS: BP 139/85
[2017-10-04 22:24] VITALS: BP 132/82
[2017-10-05 06:01] VITALS: BP 113/61
[2017-10-05 07:09] LABS: ANION GAP 11.3 mmol/L (8-16); CALCIUM 7.7 mg/dL (8.5-10.1); CARBON DIOXIDE 26.7 mmol/L (21.0-32.0)
[2017-10-05 07:11] LABS: CREATININE - SERUM 1.4 mg/dL (0.6-1.3)
[2017-10-05 07:27] LABS: BASOPHILS 0 % (0-2); EOSINOPHILS 0.4 % (0-7); HEMATOCRIT 36.1 % (42.0-54.0); HEMOGLOBIN 11.9 g/dL (13.5-17.5); IMMATURE GRANULOCYTES 0.4 % (0-5); LYMPHOCYTES 17.2 % (15-50); MCH 33.1 pg (26.0-34.0); MCV 100.3 fL (80.0-100.0); MEAN PLATELET VOLUME 12.2 fL (7.4-10.4); MONOCYTES 6.4 % (2-11); NEUTROPHILS 75.6 % (40-80); PLATELET COUNT 85 10x3/uL (130-400); RDW 14.2 % (11.5-14.5); WBC 9.9 10x3/uL (4.8-10.8)
[2017-10-05 08:24] VITALS: BP 111/66
[2017-10-05 12:02] VITALS: BP 127/76
[2017-10-05 16:29] VITALS: BP 130/74
[2017-10-05 21:54] VITALS: BP 135/77
[2017-10-06 02:37] VITALS: BP 128/68
[2017-10-06 05:01] VITALS: BP 158/89
[2017-10-06 06:24] LABS: BASOPHILS 0.1 % (0-2); EOSINOPHILS 1.3 % (0-7); HEMATOCRIT 35.4 % (42.0-54.0); IMMATURE GRANULOCYTES 0.8 % (0-5); LYMPHOCYTES 14.3 % (15-50); MCHC 33.9 g/dL (31.0-37.0); MEAN PLATELET VOLUME 11.6 fL (7.4-10.4); MONOCYTES 8.1 % (2-11); NEUTROPHILS 75.4 % (40-80); PLATELET COUNT 90 10x3/uL (130-400); RBC 3.64 10x6/uL (4.20-6.10); WBC 9.1 10x3/uL (4.8-10.8)
[2017-10-06 06:28] LABS: MCV 97.3 fL (80.0-100.0)
[2017-10-06 06:37] LABS: ANION GAP 10.8 mmol/L (8-16); CALCIUM 7.5 mg/dL (8.5-10.1); CARBON DIOXIDE 25.5 mmol/L (21.0-32.0); CREATININE - SERUM 1.2 mg/dL (0.6-1.3); POTASSIUM - SERUM 4.3 mmol/L (3.5-5.1)
[2017-10-06 09:02] VITALS: BP 149/91
[2017-10-06 13:57] VITALS: BP 111/59
[2017-10-06 14:17] LABS: ALBUMIN 1.5 g/dL (3.4-5.0); BILIRUBIN - DIRECT 0.16 mg/dL (0.00-0.30); BILIRUBIN - INDIRECT 0.34 mg/dL (0.00-1.00); BILIRUBIN - TOTAL 0.5 mg/dL (0.2-1.3); PROTEIN - SERUM 5.7 g/dL (6.4-8.2)
[2017-10-06 17:20] VITALS: BP 123/80
[2017-10-06 21:15] VITALS: BP 143/94
[2017-10-07 04:08] VITALS: BP 139/86
[2017-10-07 06:06] LABS: BASOPHILS 0 % (0-2); EOSINOPHILS 1.5 % (0-7); HEMATOCRIT 33.3 % (42.0-54.0); HEMOGLOBIN 11.4 g/dL (13.5-17.5); IMMATURE GRANULOCYTES 0.6 % (0-5); LYMPHOCYTES 14.8 % (15-50); MCH 32.9 pg (26.0-34.0); MCHC 34.2 g/dL (31.0-37.0); MCV 96.2 fL (80.0-100.0); MEAN PLATELET VOLUME 11.4 fL (7.4-10.4); MONOCYTES 9.1 % (2-11); PLATELET COUNT 104 10x3/uL (130-400); RBC 3.46 10x6/uL (4.20-6.10); RDW 13.6 % (11.5-14.5); WBC 8.7 10x3/uL (4.8-10.8)
[2017-10-07 06:15] LABS: CALC OSMOLALITY 274 mosm/kg (275-300); CALCIUM 7.3 mg/dL (8.5-10.1); CARBON DIOXIDE 22.1 mmol/L (21.0-32.0); CHLORIDE - SERUM 102 mmol/L (98-107); GLUCOSE 133 mg/dL (74-106); POTASSIUM - SERUM 4.2 mmol/L (3.5-5.1); SODIUM 132 mmol/L (136-145); UREA NITROGEN 36 mg/dL (7-18); eGFR NON AFRICAN AMERICAN 78 mL/min (90-120)
[2017-10-07 09:30] VITALS: BP 124/76
[2017-10-07 13:03] VITALS: BP 123/84
[2017-10-07] MEDS ORDERED: Levaquin PEG (16:41)
[2017-10-07] MEDS ORDERED: DEPAKOTE SPRIN125 MG PEG (16:42)
== END 2017-10-07 19:13 | DRG 682 ==
LOC: D.ER 00:46 → D.EDHOLD 02:20 → D.MS 02:20
PROVIDERS: Family Medicine
DX: N17.9 Acute kidney failure, unspecified (principal); J18.9 Pneumonia, unspecified organism; E43 Unspecified severe protein-calorie malnutrition; E87.0 Hyperosmolality and hypernatremia; I50.32 Chronic diastolic (congestive) heart failure; F02.81 Dementia in other diseases classified elsewhere, unspecified severity, with behavioral disturbance; F05 Delirium due to known physiological condition; Z68.1 Body mass index [BMI] 19.9 or less, adult; E86.0 Dehydration; R79.89 Other specified abnormal findings of blood chemistry; I11.0 Hypertensive heart disease with heart failure; T42.6X5A Adverse effect of other antiepileptic and sedative-hypnotic drugs, initial encounter; R41.82 Altered mental status, unspecified; E83.41 Hypermagnesemia; J44.9 Chronic obstructive pulmonary disease, unspecified; G30.9 Alzheimer's disease, unspecified; K21.9 Gastro-esophageal reflux disease without esophagitis; I25.10 Atherosclerotic heart disease of native coronary artery without angina pectoris; I25.2 Old myocardial infarction; I49.9 Cardiac arrhythmia, unspecified; I69.391 Dysphagia following cerebral infarction; R13.10 Dysphagia, unspecified; R15.9 Full incontinence of feces; R32 Unspecified urinary incontinence

== ENCOUNTER 2017-10-15 15:37 | Inpatient (IN) | payer MEDICARE ==
[~2017-10-15] VITALS: Ht 185.4 cm; Wt 63.0 kg
--- NOTE | ~2017-10-15 | EC ---
PATIENT:JOSH VIDAL DATE OF SERVICE: 10/15/17 SEX: M MEDICAL RECORD: [id number] DATE OF : [birth year] LOCATION:D.M2 D.213 AGE OF PATIENT: 72 ADMISSION DATE: 10/15/17 REFERRING PHYSICIAN: INTERPRETING PHYSICIAN: SAMUEL GUTIERREZ MD ECHOCARDIOGRAM REPORT ECHO CHARGES 4 ECHO COMPLETE Date: 10/17 CLINICAL DIAGNOSIS: EVAL FOR ENDOCARDITIS, HX OF CHF ECHOCARDIOGRAPHIC MEASUREMENTS (adult normal given) AC root (d.<3.7cm) 5.3 cm LV Septum d (<1.2 cm> 1.8 cm Valve Excursion 2.1 cm LV Septum (systole) 1.9 cm Left Atria (s.<4.0cm> 3.4 cm LVPW d(<1.2cm) 1.7 cm RV (d.<2.3cm) 2.22 cm LVPW (sytole) 1.9 cm LV diastole(<5.6CM) 2.6 cm MV E-F(>70mm/sec) cm LV systole 1.7 cm LVOT Diameter cm MV exc.(>10mm) cm Est.ejection fraction (50-75%) % DOPPLER: LVIT cm/sec A cm/sec E cm/sec LA cm/sec RVSP 20 mmHg LVOT 100 cm/sec AOP1/2T m/s Asc. Ao 169 cm/sec RVOT 94 cm/sec RA cm/sec PA 124 cm/sec AV Gradient Peak 11.42mmHg AV Mean 6.12 mmHg AV Area 1.4 cm MV Gradient Peak mmHg MV Mean mmHg MV Area cm COMMENTS: Hris Developer: 2 RAYMOND WEBER Reporting Process Consultant: 4 Dr. Gutierrez TAPE# PACS Pericardial Effusion N DATE OF SERVICE: PROCEDURE: Transthoracic echocardiogram. FINDINGS: 1. There is moderate concentric left ventricular hypertrophy with inflow characteristics consistent with diastolic dysfunction. Ejection fraction is hyperdynamic at 70%. There is no obvious regional wall motion abnormalities. 2. The left atrium is normal size, shape, and function. 3. The aortic valve is normal structure and function. ECHOCARDIOGRAM REPORT [id number] JOSH VIDAL 4. The mitral valve is normal structure and function. 5. Tricuspid valve is difficult to visualize, appears to be a possible vegetation on the tricuspid valve itself. Again, it is very difficult to visualize that area on current study. There appears to be mild tricuspid regurgitation. 6. Pericardium is normal. 7. The right ventricle is normal. 8. The right atrium is normal. CONCLUSIONS: The patient has evidence of echogenic mass on the tricuspid valve area, it is possible could be a vegetation. A transesophageal echocardiogram may be beneficial depending on the clinical situation. TRANSINT:[id number] Voice Confirmation ID: [id number] DOCUMENT ID: [id number] SAMUEL GUTIERREZ MD at 1131 CC: [id number] DICTATION DATE: 10/18/1730 HUMAN RESOURCE ASSISTANT: 10/18/17 0859 ADM IN [facility] [address] [place] [address]
--- NOTE | ~2017-10-15 | HEMODYNAMI ---
PATIENT:JOSH VIDAL MEDICAL RECORD: [id number] : 41 LOCATION:[address] ADMISSION DATE: 10/15/17 Generatedon:10/25/201710:27 Patient name: JOSH VIDAL Patient #: [id number] SSN: DO B: 1945 Date of study: 10/25/2017 Page: Of Hemodynamic Procedure Report Patient Data Patient Demographics Procedure consent was obtained First Name: JOSH Gender: Male Last Name: YOUNG : 1945 [facility] Initial: L Age: 72 year(s) Patient #: [id number] Race: Unknown Additional ID: [id number] Contact details Address: [address] [place] [address] State: [place] City: [facility] Zip code: [address] Admission Admission Data Admission Date: 10/15/2017 Admission Time: 21:05 Room #: 2138 Procedure Procedure Types Cath Procedure Diagnostic Procedure NORIS Procedure Description Procedure Date Procedure Date: 10/25/2017 Procedure Start Time: 10:10 Procedure End Time: 10:27 Procedure Staff Name Function Kang Ledbetter MD Performing Physician Shilo Hein RT Monitor Derek Perez RN Nurse Yonis Yin Hydro Excavation Operator Charlie Jonas MD Additional personnel Ramin Stinson MD Additional personnel Procedure Data Cath Procedure Fluoroscopy Diagnostic fluoroscopy Total fluoroscopy Time: 0 time: 0 min min Diagnostic fluoroscopy Total fluoroscopy dose: 0 dose: 0 mGy mGy Contrast Material Contrast Material Type Amount (ml) Isovue 300 0 Estimated blood loss: 0 ml Procedure Complications No complications Procedure Medications Medication Administration Route Dosage Oxygen etCO2 Nasal cannula 6 l/min 0.9% NaCl I.V. 100 ml/hr Refer to Anesthesia Notes for Sedation Medications Hemodynamics Rest Pre Cath Intra NCS Post Cath Vital Signs Time Heart Resp SPO2 etCO2 NIBP (mmHg) Rhythm Pain Sedation Rate (ipm) (%) (mmHg) Status Level (bpm) 10:04:24 88 18 0 132/100(122) NSR 0 (11) 10(A) , No pain 10:08:24 89 18 0 135/109(121) NSR 0 (11) 10(A) , No pain 10:12:25 86 19 92 0 127/85(109) NSR 0 (11) 10(A) , No pain 10:16:27 87 24 96 1.4 111/77(97) NSR 0 (11) 10(A) , No pain 10:20:23 85 24 96 0 112/78(101) NSR 0 (11) 10(A) , No pain 10:24:14 83 25 92 0 117/99(106) NSR 0 (11) 10(A) , No pain Medications Time Medication Route Dose Verified Delivered Reason Notes Effective ness by by 10:06:41 Oxygen etCO2 6 Kang Derek Per Nasal l/min Anatoly Perez RN physician cannula MD 10:06:51 0.9% NaCl I.V. 100 Kang Derek Per ml/hr Anatoly Perez RN physician 10:06:58 Refer to Kang Reed Per Anesthesia Anatoly Perez RN physician Notes for MD Sedation Medications Procedure Log Time Note 9:39:41 Shilo Hein RT(R) sent for patient. Start room use. 9:39:47 Time tracking: Regular hours (M-F 7:00 - 5:00) 9:39:53 Plan of Care:Hemodynamics will remain stable., Cardiac rhythm will remain stable., Comfort level will be maintained., Respiratory function will remain adequate., Patient/ family verbilizes understanding of procedure., Procedure tolerated without complication., Recovers from procedure without complications.. 9:52:43 Patient arrived from Med II to CCL 3. Patient remains on bed/stretcher for procedure. 9:52:45 Warm blankets applied, and moshe hugger turned on for patient comfort. 9:52:46 Correct patient and procedure confirmed by team. 9:52:47 Signed procedure consent form obtained from patient. 9:52:48 ECG and BP/O2 sat monitors applied to patient. 10:03:19 Yonis Yin Application Systems Administrator present for NORIS. 10:03:30 Vital chart was started 10:03:46 H&P Date Dictated: 10/25/2017 Within 30 days and on chart.. 10:05:28 Pt has dementia and is unable to answer pre procedure questions. 10:05:32 Family unavailable. 10:05:34 Patient NPO since Midnight. 10:05:57 Is the patient allergic to Iodine/contrast media? No. 10:06:17 Is patient on blood thinner?Unknown 10:06:41 Oxygen 6 l/min etCO2 Nasal cannula was administered by Derek Perez RN; Per physician; 10:06:42 IV patent on arrival in right forearm with 0.9% NaCl at KVO. 10:06:49 Lab results completed and on chart. 10:06:51 0.9% NaCl 100 ml/hr I.V. was administered by Derek Perez RN; Per physician; 10::58 Refer to Anesthesia Notes for Sedation Medications was administered by Derek Perez RN; Per physician; 10:07:05 Pt prepped for NORIS 10:07:26 Ramin Stinson MD present and monitoring patient for TIVA. 10:08:07 --------ALL STOP TIME OUT------ 10:08:08 Final Timeout: patient, procedure, and site verified with staff and physician. All members of the team are in agreement. 10:08:20 Physical assessment completed. ASA score P 3 - A patient with severe systemic disease as per Kang Ledbetter MD. 10:08:27 Sedation plan: TIVA Medication:Propofol 10:08:58 IV Extension Set opened to sterile field. 10:10:42 Procedure started. 10:10:42 Full Disclosure recording started 10:10:42 NORIS started. 10:15:10 NORIS completed. 10:15:13 Procedure ended.(Physican Out) 10:15:49 Fluoroscopy time 00.00 minutes. 10:15:51 Fluoroscopy dose: 0 mGy 10:15:51 Flurop Dose total: 0 10:15:55 Contrast amount:Isovue 300 0ml. 10:16:02 Post-procedure physical assessment completed. ASA score P 3 - A patient with severe systemic disease as per Kang Ledbetter MD. 10:16:04 Post procedure rhythm: unchanged. 10:16:06 Estimated blood loss: 0 ml 10:16:07 Post procedure instruction explained to patient.Patient verbalizes understanding. 10:16:08 Patient needs reinforcement of post procedure teaching. 10:16:10 Procedure and supply charges have been captured, reviewed, submitted and are correct. 10:16:12 Procedure Complication : No complications 10:16:32 See physician's report for complete and final results. 10:16:35 Report given to [facility] II. 10:26:56 Vital chart was stopped 10:27:00 Patient transfered to [facility] with Bed. 10:27:02 Procedure ended. 10:27:02 Full Disclosure recording stopped 10:27:09 End room use (Document Last) Device Usage Item Name Manufacture Quantity Catalog Hospital Part Current Minimal Lot# / Number Charge Number Stock Stock Serial# Code [place] [id number] [id number] Extension Set Signature Audit [place] Stage Time Signature Unsigned Intra-Procedure 10/25/2017 Shilo Hein 10:27:53 AM RT(R) Signatures Monitor : Shilo Hein RT Signature : Date : Time : [address] [address]
[~2017-10-15 15:37] MED LIST changes: +DEPAKOTE SPRIN125 MG PEG; +Levaquin PEG; +PROMOD LIQUID P30 M1 PEG
[2017-10-15 16:20] LABS: APPEARANCE CLEAR (CLEAR); BILIRUBIN NEGATIVE (NEGATIVE); COLOR DK YELLOW (YELLOW); GLUCOSE NEGATIVE (NEGATIVE); KETONE NEGATIVE (NEGATIVE); NITRITE NEGATIVE (NEGATIVE); PROTEIN NEGATIVE (NEGATIVE); SPECIFIC GRAVITY 1.005 (1.005-1.020); UROBILINOGEN NORMAL (NORMAL)
[2017-10-15 16:35] LABS: BASOPHILS 0.1 % (0-2); EOSINOPHILS 0.1 % (0-7); HEMATOCRIT 34.8 % (42.0-54.0); HEMOGLOBIN 11.4 g/dL (13.5-17.5); IMMATURE GRANULOCYTES 0.5 % (0-5); LYMPHOCYTES 18.4 % (15-50); MCHC 32.8 g/dL (31.0-37.0); MCV 100.9 fL (80.0-100.0); MEAN PLATELET VOLUME 8.9 fL (7.4-10.4); MONOCYTES 8.9 % (2-11); PLATELET COUNT 267 10x3/uL (130-400); RBC 3.45 10x6/uL (4.20-6.10); RDW 15.4 % (11.5-14.5); WBC 9.2 10x3/uL (4.8-10.8)
[2017-10-15 16:52] LABS: ALBUMIN 1.5 g/dL (3.4-5.0); ALKALINE PHOSPHATASE 130 U/L (46-116); ALT (SGPT) 15 U/L (10-68); BILIRUBIN - TOTAL 0.44 mg/dL (0.2-1.3); CALC OSMOLALITY 307 mosm/kg (275-300); CALCIUM 8.4 mg/dL (8.5-10.1); CARBON DIOXIDE 28.7 mmol/L (21.0-32.0); CHLORIDE - SERUM 113 mmol/L (98-107); GLUCOSE 123 mg/dL (74-106); POTASSIUM - SERUM 4.6 mmol/L (3.5-5.1); PROTEIN - SERUM 6.4 g/dL (6.4-8.2); SODIUM 147 mmol/L (136-145); UREA NITROGEN 54 mg/dL (7-18); eGFR NON AFRICAN AMERICAN 78 mL/min (90-120)
[2017-10-15 17:22] LABS: CREATINE KINASE 352 UL (21-232); PRO BNP 2512 pg/mL (0-125)
[2017-10-15 17:29] LABS: TROPONIN-I 0.066 ng/mL (0.000-0.060)
[2017-10-15 17:30] LABS: CKMB 1.2 U/L (0.0-3.6)
[2017-10-15 23:40] VITALS: BP 162/88; BMI 19.8
[2017-10-16] VITALS (7 sets, daily range): BP systolic 112–162; BP diastolic 81–729
[2017-10-16] MEDS ORDERED: PEPCID20 MG PEG (00:15)
[2017-10-16] MEDS ORDERED: ARICEPT10 MG PEG (00:17)
[2017-10-16] MEDS ORDERED: BETAPACE 80 MG80 MG PEG (00:18)
[2017-10-16] MEDS ORDERED: LANOXIN125 MCG PEG (00:19)
[2017-10-16] MEDS ORDERED: LACTINEX GRANUL1 PCK PEG (00:20)
[2017-10-17 02:28] VITALS: BP 126/81
[2017-10-17 05:22] VITALS: BP 115/87
[2017-10-17 07:20] LABS: ANION GAP 9.9 mmol/L (8-16); BASOPHILS 0.2 % (0-2); CALCIUM 8.5 mg/dL (8.5-10.1); CREATININE - SERUM 1.2 mg/dL (0.6-1.3); EOSINOPHILS 1.5 % (0-7); HEMATOCRIT 35.3 % (42.0-54.0); HEMOGLOBIN 11.3 g/dL (13.5-17.5); IMMATURE GRANULOCYTES 0.6 % (0-5); LYMPHOCYTES 24.5 % (15-50); MCH 32.4 pg (26.0-34.0); MCV 101.1 fL (80.0-100.0); MEAN PLATELET VOLUME 9.2 fL (7.4-10.4); MONOCYTES 8.8 % (2-11); NEUTROPHILS 64.4 % (40-80); PLATELET COUNT 288 10x3/uL (130-400); RBC 3.49 10x6/uL (4.20-6.10); RDW 14.9 % (11.5-14.5)
[2017-10-17 07:24] LABS: POTASSIUM - SERUM 3.9 mmol/L (3.5-5.1)
[2017-10-17 07:25] LABS: WBC 6.6 10x3/uL (4.8-10.8)
[2017-10-17 08:20] VITALS: BP 165/78
[2017-10-17 08:37] LABS: ERYTHROCYTE SEDIMENTATION RATE 105 mm/hr (0-20)
[2017-10-17 11:24] VITALS: BP 142/86
[2017-10-17 16:10] VITALS: BP 147/81
[2017-10-17 20:00] VITALS: BP 130/75
[2017-10-18 06:53] LABS: BASOPHILS 0.1 % (0-2); EOSINOPHILS 2.6 % (0-7); HEMATOCRIT 35.3 % (42.0-54.0); HEMOGLOBIN 11.2 g/dL (13.5-17.5); IMMATURE GRANULOCYTES 0.7 % (0-5); LYMPHOCYTES 23.5 % (15-50); MCH 32.6 pg (26.0-34.0); MCHC 31.7 g/dL (31.0-37.0); MCV 102.6 fL (80.0-100.0); MEAN PLATELET VOLUME 9.2 fL (7.4-10.4); MONOCYTES 10.8 % (2-11); NEUTROPHILS 62.3 % (40-80); PLATELET COUNT 288 10x3/uL (130-400); RBC 3.44 10x6/uL (4.20-6.10); RDW 15.1 % (11.5-14.5); WBC 7.6 10x3/uL (4.8-10.8)
[2017-10-18 07:05] LABS: CALC OSMOLALITY 323 mosm/kg (275-300); CALCIUM 8.6 mg/dL (8.5-10.1); CHLORIDE - SERUM 115 mmol/L (98-107); GLUCOSE 143 mg/dL (74-106); POTASSIUM - SERUM 3.8 mmol/L (3.5-5.1); SODIUM 154 mmol/L (136-145); UREA NITROGEN 59 mg/dL (7-18); eGFR NON AFRICAN AMERICAN 78 mL/min (90-120)
[2017-10-18 08:35] VITALS: BP 138/94
[2017-10-18 12:02] VITALS: BP 138/49
[2017-10-18 16:12] VITALS: BP 136/79
[2017-10-18 20:00] VITALS: BP 151/93
[2017-10-19] VITALS: BP 148/80
[2017-10-19 06:41] LABS: CALC OSMOLALITY 310 mosm/kg (275-300); CALCIUM 7.6 mg/dL (8.5-10.1); CARBON DIOXIDE 28.9 mmol/L (21.0-32.0); CHLORIDE - SERUM 105 mmol/L (98-107); CREATININE - SERUM 0.9 mg/dL (0.6-1.3); POTASSIUM - SERUM 4.1 mmol/L (3.5-5.1); SODIUM 141 mmol/L (136-145); UREA NITROGEN 51 mg/dL (7-18); eGFR NON AFRICAN AMERICAN 88 mL/min (90-120)
[2017-10-19 06:43] LABS: GLUCOSE 384 mg/dL (74-106)
[2017-10-19 08:22] VITALS: BP 99/67
[2017-10-19 12:09] VITALS: BP 112/88
[2017-10-19 13:19] VITALS: BMI 17.5
[2017-10-19 16:16] VITALS: BP 103/65
[2017-10-19 22:01] VITALS: BP 93/49
[2017-10-20 01:03] VITALS: BP 100/57
[2017-10-20 06:10] LABS: CALC OSMOLALITY 300 mosm/kg (275-300); CARBON DIOXIDE 27.6 mmol/L (21.0-32.0); CHLORIDE - SERUM 107 mmol/L (98-107); POTASSIUM - SERUM 4.4 mmol/L (3.5-5.1); SODIUM 144 mmol/L (136-145); UREA NITROGEN 53 mg/dL (7-18); eGFR NON AFRICAN AMERICAN 78 mL/min (90-120)
[2017-10-20 06:16] LABS: GLUCOSE 104 mg/dL (74-106)
[2017-10-20 07:00] VITALS: BP 119/69
[2017-10-20 13:03] VITALS: BP 144/88
[2017-10-20 15:10] LABS: CREATINE KINASE 202 UL (21-232); TROPONIN-I 0.037 ng/mL (0.000-0.060)
[2017-10-20 16:39] VITALS: BP 160/64
[2017-10-20 20:00] VITALS: BP 100/72
[2017-10-21] VITALS: BP 130/75
[2017-10-21 04:00] VITALS: BP 110/69
[2017-10-21 05:39] LABS: BASOPHILS 0.3 % (0-2); EOSINOPHILS 4.2 % (0-7); HEMATOCRIT 32.1 % (42.0-54.0); HEMOGLOBIN 10.3 g/dL (13.5-17.5); LYMPHOCYTES 27.4 % (15-50); MCH 32.1 pg (26.0-34.0); MCHC 32.1 g/dL (31.0-37.0); MEAN PLATELET VOLUME 9.6 fL (7.4-10.4); MONOCYTES 14.6 % (2-11); NEUTROPHILS 49.5 % (40-80); PLATELET COUNT 321 10x3/uL (130-400); RBC 3.21 10x6/uL (4.20-6.10); RDW 14.1 % (11.5-14.5); WBC 6.5 10x3/uL (4.8-10.8)
[2017-10-21 05:43] LABS: CALC OSMOLALITY 288 mosm/kg (275-300); CALCIUM 7.7 mg/dL (8.5-10.1); CARBON DIOXIDE 28.4 mmol/L (21.0-32.0); CHLORIDE - SERUM 104 mmol/L (98-107); CREATININE - SERUM 0.8 mg/dL (0.6-1.3); GLUCOSE 111 mg/dL (74-106); POTASSIUM - SERUM 4.3 mmol/L (3.5-5.1); SODIUM 139 mmol/L (136-145); UREA NITROGEN 41 mg/dL (7-18); eGFR NON AFRICAN AMERICAN > 90 mL/min (90-120)
[2017-10-21 09:01] VITALS: BP 130/70
[2017-10-21 12:17] VITALS: BP 124/75
[2017-10-21 15:17] VITALS: BP 126/74
[2017-10-21 20:00] VITALS: BP 118/79
[2017-10-22 04:00] VITALS: BP 122/76
[2017-10-22 08:21] VITALS: BP 138/117
[2017-10-22 11:46] VITALS: BP 133/40
[2017-10-22 15:49] VITALS: BP 152/75
[2017-10-22 21:06] VITALS: BP 136/77
[2017-10-23 00:50] VITALS: BP 136/72
[2017-10-23 05:59] VITALS: BP 142/78
[2017-10-23 08:13] VITALS: BP 140/83
[2017-10-23 12:04] VITALS: BP 133/79
[2017-10-23 15:46] VITALS: BP 157/83
[2017-10-23 22:00] VITALS: BP 152/87
[2017-10-24] VITALS (8 sets, daily range): BP systolic 119–145; BP diastolic 66–92
[2017-10-25] VITALS (7 sets, daily range): BP systolic 120–188; BP diastolic 76–97
[2017-10-26 04:19] VITALS: BP 121/56
[2017-10-26 04:26] VITALS: BP 135/85
[2017-10-26 08:04] VITALS: BP 122/68
[2017-10-26 11:43] VITALS: BP 162/94
[2017-10-26 13:41] VITALS: Ht 185.4 cm; Wt 63.0 kg
[2017-10-26] MEDS ORDERED: ROCEPHIN 1 GM/D51 G1 IVPB (15:03)
[2017-10-26] MEDS ORDERED: VIBRAMYCIN 100100 MG PO (15:04)
[2017-10-26] MEDS ORDERED: ROCEPHIN 1 GM/D51 G1 IV (15:29)
[2017-10-26] MEDS ORDERED: VIBRAMYCIN 100100 MG PT (15:30)
[2017-10-26 16:32] VITALS: BP 143/88
== END 2017-10-26 19:03 | DRG 288 ==
LOC: D.ER 15:37 → D.M2 21:05 → D.EDHOLD 21:05 → D.M2 21:50
PROVIDERS: Family Medicine; Nurse Practitioner Family
PROC: 05HB33Z Insertion of Infusion Device into Right Basilic Vein, Percutaneous Approach (ICD-10-PCS; principal; 2017-10-26)
PROC: B54MZZA Ultrasonography of Right Upper Extremity Veins, Guidance (ICD-10-PCS; 2017-10-26)
DX: I33.9 Acute and subacute endocarditis, unspecified (principal); J18.9 Pneumonia, unspecified organism; N17.9 Acute kidney failure, unspecified; F02.81 Dementia in other diseases classified elsewhere, unspecified severity, with behavioral disturbance; I50.30 Unspecified diastolic (congestive) heart failure; E86.0 Dehydration; R79.89 Other specified abnormal findings of blood chemistry; I69.391 Dysphagia following cerebral infarction; R13.10 Dysphagia, unspecified; J44.9 Chronic obstructive pulmonary disease, unspecified; I48.91 Unspecified atrial fibrillation; G30.9 Alzheimer's disease, unspecified; E78.5 Hyperlipidemia, unspecified; Z87.891 Personal history of nicotine dependence